=== PATIENT | female | born 1940 | race Caucasian/White ===

== ENCOUNTER 2023-08-24 14:22 | Emergency (ER) | payer OTHER, SELFPAY ==
[2023-08-24 14:27] VITALS: BP 143/66
[2023-08-24 14:33] VITALS: BMI 41.3
[2023-08-24 14:41] VITALS: BP 143/66
[2023-08-24 15:00] VITALS: BP 164/70
[2023-08-24 15:04] LABS: % Basophils 0.7 % (0-2); % Eosinophils 2.6 % (0-6); % Immature Granulocytes 0.4 % (0-0.5); % Lymphocytes 14.9 % (20.5-51.1); % Monocytes 7.5 % (1.7-9.3); % Neutrophils 73.9 % (42.2-75.2); Absolute Basophils 0.1 10^3/uL (0-0.2); Absolute Eosinophils 0.2 10^3/uL (0-0.7); Absolute Lymphocytes 1.3 10^3/uL (1.2-3.4); Absolute Monocytes 0.6 10^3/uL (0.1-0.6); Absolute Neutrophils 6.3 10^3/uL (1.4-6.5); Hemoglobin 13.8 g/dL (12.0-16.0); Mean Corp Hgb Conc. 33.7 g/dL (33.0-37.0); Mean Corpuscular Hgb 29.1 pg (27.0-31.0); Mean Corpuscular Volume 86.5 fL (81.0-99.0); Mean Platelet Volume 11.3 fL (7.4-10.4); Nucleated Red Blood Cells % 0 %; Platelet Count 184 10^3/uL (130-400); Red Blood Cell Count 4.74 10^6/uL (4.20-5.40); Red Cell Dist. Width 14.5 % (11.5-14.5); White Blood Cell Count 8.6 10^3/uL (4.8-10.8)
--- NOTE | 2023-08-24 15:10 | ED.GENMED ---
History of Present Illness
General
Chief Complaint: Abdominal Pain
Source: patient
Exam Limitations: none
Time Seen by Provider: 08/24/23 15:00
Travel History
Have you had any contact with someone who has COVID-19?: No
Do you have any symptoms of coronavirus? Fever > 100 degrees, chills, cough, shortness of breath, sore throat, loss of taste or smell, muscle aches, or headache?: No
History of Present Illness
History of Present Illness:
See MDM
Past History
Past History
ED Past Medical History: Cancer (Breast cancer treated 25 years ago), HTN, Hypercholesterolemia and Other (History of pancreatitis)
ED Past Surgical History: Other
Social History
Tobacco: Non-smoker
Alcohol: None
Drug: None
Personal:
Living: with family
Employment: Retired
Family History
Family History: Other (Noncontributory)
Phy Exam
Physical Exam
Physical Exam:
See MDM
Course
Orders/Labs/Results
Orders:
Orders
08/24/23 14:43
EKG [Electrocardiogram (*1)] Urgent
Reason for Study: Abdominal Pain
08/24/23 14:44
EKG- Treatment ONCE
08/24/23 14:47
CMP [Comprehensive Metabolic Panel] Urgent
Complete Blood Count/With Diff Urgent
Lipase Urgent
08/24/23 15:08
0.9% Sodium Chloride 1000 ml [Nss] 1,000 ml IV BOLUS
Ketorolac [Toradol] 30 mg IV NOW STA
Ondansetron Injectable [Zofran] 4 mg IV NOW STA
08/24/23 15:09
CT Abd/pelvis W Iv Cont Urgent
Comment:
Reason For Exam: General abd pain after eating. Vomiting
08/24/23 15:47
Urinalysis Reflex To Culture Urgent
Date Specimen was Collected: 08/24/23
Time Specimen was Collected: 15:31
Urine Microscopic Reflex Cult Urgent
Abnormal Lab Results
08/24/23 08/24/23
14:47 15:47
MPV 11.3 H fL
(7.4-10.4)
Lymphocytes % 14.9 L %
(20.5-51.1)
BUN 20 H mg/dl
(7-17)
Glucose 138 H mg/dl
(70-99)
AST 51 H U/L
(14-36)
ALT 61 H U/L
(0-35)
Ur Occult Blood Reflex 4+ A
(Negative)
Urine RBC >100 A /HPF
(0-2)
Urine Albumin (Reflex) 2+ A
(Neg - Trace)
08/24/23 14:47
08/24/23 14:47
Vital Signs
Initial and Last Documented VS:
Initial Vital Signs
Temp Pulse Resp BP Pulse Ox
98.3 F 69 16 143/66 94
08/24/23 14:27 08/24/23 14:27 08/24/23 14:27 08/24/23 14:27 08/24/23 14:27
Last Documented Vital Signs
Temp Pulse Resp BP Pulse Ox
98.3 F 83 20 104/73 93
08/24/23 14:27 08/24/23 17:15 08/24/23 17:15 08/24/23 17:00 08/24/23 17:15
MDM/Problems Addressed
Differential Diagnosis Includes:
HPI and MDM Narrative:
83-year-old female presenting with abdominal pain and vomiting. This occurred soon after eating [employer]. On arrival, patient still nauseous and complains of abdominal pain. Patient states this feels similar to her prior episode where she was
diagnosed with gallstone pancreatitis. She has since had her gallbladder removed.
Given her age, will obtain screening EKG. Will obtain basic blood work and provide IV fluids, Zofran and Toradol. Will obtain CT abdomen/pelvis
Physical exam
General: Mildly uncomfortable
HEENT: protecting airway
Neck: appears supple
CV: No evidence of cyanosis
Resp: No accessory muscle use
Abd: Non-distended. Generalized abdominal pain. No rebound
Extremities: No deformities
Neuro: alert
Psych: Normal affect
Skin: Intact
Problems Addressed including Acute and Chronic Conditions affecting care:
1. Abdominal pain
Acuity: acute
Prognosis: stable
Details: Will obtain CT. Patient given Toradol
2. Nausea and vomiting
Acuity: acute
Prognosis: stable
Details: Patient given IV fluids and IV Zofran
Updates
On multiple reassessments, patient feeling better. Patient has hematuria. CT confirms 6 mm obstructing calculus at the right UVJ. Patient is incontinent and does not require a strainer. Discussed return precautions. Patient and family feel
comfortable going
Differential Diagnosis (but not limited to): Gastroenteritis, pancreatitis, colitis
Testing considered: Troponin
Drug therapy (if applicable): OTC meds, please see d/c instruction regarding Rx drugs
Amount and/or Complexity of Data Reviewed
Clinical info obtained from: Patient
External data reviewed: N/A
Labs I independently reviewed (but not limited to): Hematuria
Radiology: the CT scan was personally and independently reviewed. In addition, official CT report reviewed.
Pulse Ox: not hypoxic
EKG independently reviewed: Sinus rhythm, left axis, no STEMI, left bundle branch block, appears unchanged from prior
Director Economic: N/A
Critical Care: N/A
Risk of Complication:
Social Determinants of health: Good social support
Discussed with other providers: N/A
Escalation of Care includes Admit/Obs: After being observed in the Emergency Department, pt stable for discharge.
Occasional wrong word or 'sound a like' substitutions may have occurred due to the inherent limitations of voice recognition software. Read the chart carefully and recognize, using context, where substitutions have occurred.
*Critical Care Note
Total Time (30-74mins, 75-104mins- exclusive of procedures): Not Applicable
ED Attending Note
-
Portions of this chart may have been created with voice recognition software.� Occasional wrong word or��sound alike� substitutions may have occurred due to the inherent limitations of voice recognition software.
Discharge Plan
Departure
Patient Disposition: Home (Routine Discharge)
Date of Disposition: 08/24/23
Time of Disposition: 17:39
Patient with high blood pressure during this ER visit?: No
Discharge Problem:
Kidney stone on right side
Instructions: Kidney Stones (DC)
Prescriptions:
New
tamsulosin [Flomax] 0.4 mg Capsule
0.4 mg PO DAILY Qty: 14 0RF
diclofenac potassium 50 mg tablet
50 mg PO BID Qty: 20 0RF
ondansetron 4 mg Tablet,Disintegrating
4 mg PO BIDPRN PRN (Reason: nausea/vomiting) Qty: 10 0RF
No Action
amlodipine 5 MG tablet
5 mg PO HS
aspirin 81 MG tablet,delayed release (DR/EC)
81 mg PO HS
propranolol 10 MG tablet
40 mg PO HS
propranolol 10 MG tablet
20 mg PO DAILY
oxybutynin chloride 5 MG tablet extended release 24hr
5 mg PO HS
carbidopa-levodopa 1 EACH tablet
2 tab PO TID
cyclosporine [Restasis] 10 DROPS dropperette
1 drp BOTH EYES BID
multivitamin with folic acid [Tab-A-Chet] 1 TABLET tablet
1 tab PO DAILY
[id number]-[id number]-ntfg-vjq-dcgd-boron [Caltrate 600-D Plus Minerals] 1 EACH tablet,chewable
1 tab PO DAILY
polyethylene glycol 3350 17 GRAMS powder in packet
17 grams PO HSPRN PRN (Reason: No BM in two day) 30 Days Qty: 30 0RF
Rx Instructions:
available OTC
levothyroxine 125 MCG tablet
125 mcg PO DAILY
Magnelife Supplement
1 tab PO DAILY PRN (Reason: pain)
atorvastatin 10 MG tablet
10 mg PO HS
docusate sodium 100 MG capsule
100 mg PO BID
ibuprofen 200 MG tablet
400 mg PO QIDPRN PRN (Reason: pain) Qty: 1 0RF
oxycodone-acetaminophen 5 MG/325 MG tablet
0.5 - 1 tab PO Q4HPRN PRN (Reason: pain not relieved by ibuprofen) Qty: 10 0RF
Referrals:
Kathy Jones CRNP [Family Provider] -
Activity Restrictions/Additional Instructions:
Please return for any worsening symptoms.
You may return at any time if you have further concerns.
Please follow up with your doctor at the first available appointment, preferably this week.
Thank you for choosing [facility].
Interventions
Interventions:
*Risk Screen - Suicide Last Done: 08/24/23 14:27
*General Assessment Last Done: 08/24/23 14:33
*Neglect/Abuse Screening Last Done: 08/24/23 14:27
ED- Fall Risk Assessment Last Done: 08/24/23 14:33
*ED COVID-19 Vaccine History Last Done: 08/24/23 14:27
DY-Xogpcc-Rszsfwkbus Assessment Last Done: 08/24/23 14:33
[2023-08-24] MEDS: ZOFRAN 4 MG IV (15:16)
[2023-08-24] MEDS: TORADOL 30 MG IV (15:17)
[2023-08-24] MEDS: NSS 1000 IV (15:18)
[2023-08-24 15:20] LABS: ALT (SGPT) 61 U/L (0-35); AST (SGOT) 51 U/L (14-36); Albumin 4.5 g/dl (3.5-5.0); Alkaline Phosphatase 109 U/L (38-126); Blood Urea Nitrogen 20 mg/dl (7-17); Calcium 9.8 mg/dl (8.4-10.2); Carbon Dioxide 23 mmol/L (22-30); Chloride 105 mmol/L (98-107); Estimated Creatinine Clearance 61 ml/min; Glucose 138 mg/dl (70-99); Lipase 79 U/L (23-300); Potassium 3.8 mmol/L (3.5-5.1); Sodium 136 mmol/L (135-145); Total Bilirubin 0.5 mg/dl (0.2-1.3); Total Protein 7.6 g/dl (6.3-8.2); eGFR > 60.00
[2023-08-24 16:00] VITALS: BP 138/61
[2023-08-24 16:17] LABS: Urine Albumin 2+ (Neg - Trace); Urine Bilirubin Negative (Negative); Urine Glucose Negative (Negative); Urine Ketone Negative (Negative); Urine Leukocyte Negative (Negative); Urine Nitrite Negative (Negative); Urine Occult Blood 4+ (Negative); Urine Urobilinogen Negative (Neg - 1+)
[2023-08-24 16:18] LABS: Urine Character Slightly Cloudy (Clear); Urine Color Yellow
[2023-08-24 16:19] LABS: Urine Red Blood Cell >100 /HPF (0-2); Urine Squamous Cell 0-2 /LPF (Few); Urine White Cell None Seen /HPF (0-5)
[2023-08-24 17:00] VITALS: BP 104/73
== END 2023-08-24 17:56 | disposition home or self-care (01) ==
LOC: EMR 14:22
PROVIDERS: EMERGENCY PHYSICIAN Student in an Organized Health Care Education/Training Program; FAMILY PHYSICIAN Nurse Practitioner Gerontology
DX: N20.0 Calculus of kidney (principal); Z90.49 Acquired absence of other specified parts of digestive tract
CPT/HCPCS: 99285; 96374; 96375; 96361; 74177; 80053; 81003; 81015; 83690; 85025; 93005; Q9967

== ENCOUNTER → 2023-09-26 12:27 | Outpatient (REF) | payer OTHER, SELFPAY | LOC: RAD 12:27 | PROVIDERS: ATTENDING PHYSICIAN Nurse Practitioner Gerontology | DX: N20.2 Calculus of kidney with calculus of ureter (principal) | CPT/HCPCS: 76770 ==